=== PATIENT | female | born 1955 | race Caucasian/White ===

== ENCOUNTER → 2019-09-11 | Outpatient (REF) | LOC: M LAB LCGH 15:37 | PROVIDERS: ATTEND Physician Assistant | DX: C44.311 Basal cell carcinoma of skin of nose (principal) ==

== ENCOUNTER → 2022-05-31 | Outpatient (CLI) | payer OTHER ==
[~2022-05-31] MED LIST: ATEN50TA2 PO; FARX1TAB3 PO; LEXA1TAB PO; METF10004 PO; PRAV40TA2 PO; TRUL0.5I PO
== END ==
LOC: M LABSMTC 10:41
PROVIDERS: ATTEND Anesthesiology
DX: Z01.812 Encounter for preprocedural laboratory examination (principal); Z11.52 Encounter for screening for COVID-19

== ENCOUNTER 2022-06-05 10:50 | Day surgery (SDC) | payer BC ==
[~2022-06-05] VITALS: Ht 167.6 cm; Wt 103.6 kg
[~2022-06-05 10:50] MED LIST changes: +NS 1,000 ML IV ONE
[2022-06-05] MEDS ORDERED: propofoL 200 MG/20 ML VIAL As Ordered ONE (12:46)
[2022-06-05] MEDS ORDERED: LIDOCAINE 2% 100MG/5ML SDV (FOR ANES.) As Ordered ONE (12:46)
[2022-06-05 13:32] VITALS: BP 143/75
[2022-06-05] MEDS ORDERED: GASTROGRAFIN SOLUTION 30ML (Q9963) As Ordered ONE (14:07)
[2022-06-05 15:14] LABS: ALBUMIN 3.5 GM/DL (3.2-5.2); BLOOD UREA NITROGEN 12 MG/DL (7-18); CARBON DIOXIDE LEVEL 28 MEQ/L (21-32); CHLORIDE LEVEL 106 MEQ/L (98-107); CREATININE FOR GFR 0.55 MG/DL (0.55-1.30); GLOMERULAR FILTRATION RATE > 60.0 (>45); GLUCOSE, FASTING 166 MG/DL (70-100); POTASSIUM SERUM 4.1 MEQ/L (3.5-5.1); SODIUM LEVEL 141 MEQ/L (136-145)
[2022-06-05] MEDS ORDERED: ISOVUE-370 76% 100ML VIAL As Ordered ONE (15:30)
== END 2022-06-05 14:00 | disposition home or self-care (01) ==
LOC: M OPP 10:50
PROVIDERS: ATTEND Surgery
DX: R19.4 Change in bowel habit (principal); K62.5 Hemorrhage of anus and rectum; C18.7 Malignant neoplasm of sigmoid colon; D12.8 Benign neoplasm of rectum; K64.1 Second degree hemorrhoids; K56.691 Other complete intestinal obstruction; I10 Essential (primary) hypertension; E78.5 Hyperlipidemia, unspecified; E11.9 Type 2 diabetes mellitus without complications; F17.210 Nicotine dependence, cigarettes, uncomplicated; Z85.828 Personal history of other malignant neoplasm of skin; Z79.84 Long term (current) use of oral hypoglycemic drugs; Z79.899 Other long term (current) drug therapy; Z82.49 Family history of ischemic heart disease and other diseases of the circulatory system
CPT/HCPCS: 36415; 45380; 74177; 80069; 88305; Q9963; Q9967

== ENCOUNTER → 2022-06-21 | Outpatient (CLI) | payer BC ==
[~2022-06-21] MED LIST changes: -NS 1,000 ML IV ONE
== END ==
LOC: M LABSMTC 09:06
PROVIDERS: ATTEND Anesthesiology
DX: Z11.52 Encounter for screening for COVID-19 (principal)

== ENCOUNTER 2022-06-26 07:30 | Inpatient (IN) | payer BC ==
[2022-06-26] VITALS (7 sets, daily range): BP systolic 111–117; BP diastolic 58–63
[~2022-06-26] VITALS: Ht 165.1 cm; Wt 103.5 kg
[~2022-06-26 07:30] MED LIST changes: +ERTAPENEM SODIUM 1 GM in NS MINI-BAG PLUS 50 ML IV ONE
[2022-06-26] MEDS ORDERED: LR 1,000 ML IV SCH ×2 (08:10→15:10)
[2022-06-26] MEDS ORDERED: METOCLOPRAMIDE INJ 10MG/2ML VIAL (J2765 PER 1) As Ordered ONE (10:03)
[2022-06-26] MEDS ORDERED: propofoL 200 MG/20 ML VIAL As Ordered ONE (10:03)
[2022-06-26] MEDS ORDERED: ROCURONIUM BROMIDE 50 MG/5 ML VIAL As Ordered ONE ×2 (10:03→14:32)
[2022-06-26] MEDS ORDERED: ACETAMINOPHEN 1000MG 100ML IV BTL (OFIRMEV) (J0131 PER 10MG) As Ordered ONE (10:03)
[2022-06-26] MEDS ORDERED: fentaNYL 100 MCG/2 ML INJECTION As Ordered ONE (10:03)
[2022-06-26] MEDS ORDERED: SUGAMMADEX SODIUM 500 MG/5 ML VIAL (BRIDION) As Ordered ONE (10:03)
[2022-06-26] MEDS ORDERED: MIDAZOLAM INJ 2MG/2ML VIAL (J2250 PER 1MG) As Ordered ONE (10:03)
[2022-06-26] MEDS ORDERED: ONDANSETRON 4MG 2ML VIAL As Ordered ONE (10:03)
[2022-06-26] MEDS ORDERED: KETOROLAC 60MG 2ML VIAL As Ordered ONE (10:03)
[2022-06-26] MEDS ORDERED: LIDOCAINE 2% 100MG/5ML SDV (FOR ANES.) As Ordered ONE (10:03)
[2022-06-26] MEDS ORDERED: dexameTHASONE 4 MG/ML 1ML VIAL (J1100 PER 1MG) As Ordered ONE (10:03)
[2022-06-26] MEDS ORDERED: MORPHINE 4 MG/ML 1ML VIAL/SYRINGE IV PRN (10:20)
[2022-06-26] MEDS ORDERED: ACETAMINOPHEN TAB 650MG DOSE (2X325MG) PO PRN (10:20)
[2022-06-26] MEDS ORDERED: ONDANSETRON 4MG 2ML VIAL IV PRN ×2 (10:20→15:10)
[2022-06-26] MEDS ORDERED: NORCO, ANEXSIA 5/325MG TABLET (HYDROcodone/ACETAMINOPHEN) PO PRN ×2 (10:20)
[2022-06-26] MEDS ORDERED: BUPIVACAINE/EPIN 0.25% 30 ML VIAL As Ordered ONE (10:31)
[2022-06-26] MEDS ORDERED: HYDROmorphone HCL 2MG/ML 1ML VIAL As Ordered ONE (11:26)
[2022-06-26] MEDS ORDERED: MORPHINE 2 MG/ML 1ML VIAL IV PRN (15:10)
[2022-06-26] MEDS ORDERED: fentaNYL 100 MCG/2 ML INJECTION IV PRN (15:10)
[2022-06-26] MEDS ORDERED: oxyCODONE 5MG TAB PO PRN (15:10)
[2022-06-26] MEDS: NS 1,000 ML IV SCH ×2 (16:23→20:22)
[2022-06-26] MEDS: PRAVASTATIN 20 MG TAB PO SCH (20:22)
[2022-06-26] MEDS: PIPERACILLIN/TAZOBACTAM SOD 3.375 GM in D5W MINI-BAG PLUS 50 ML IV SCH (20:22)
[2022-06-26] MEDS: SENOKOT S TAB PO SCH (20:22)
[2022-06-27 01:20] VITALS: BP 115/64
[2022-06-27] MEDS: NS 1,000 ML IV SCH ×3 (01:55→21:00)
[2022-06-27] MEDS: PIPERACILLIN/TAZOBACTAM SOD 3.375 GM in D5W MINI-BAG PLUS 50 ML IV SCH ×4 (02:03→20:59)
[2022-06-27 05:20] VITALS: BP 131/70
[2022-06-27 06:21] LABS: HEMOGLOBIN 12.4 g/dl (12.0-15.5); MEAN CORPUSCULAR HEMOGLOBIN 27.9 pg (27.0-33.0); MEAN CORPUSCULAR VOLUME 89.9 fl (80.0-96.0); PLATELET COUNT, AUTOMATED 308 10^3/uL (150-450); RED BLOOD COUNT 4.45 10^6/uL (4.00-5.40); WHITE BLOOD COUNT 12.3 10^3/uL (4.0-10.0)
[2022-06-27 06:52] LABS: BLOOD UREA NITROGEN 13 MG/DL (7-18); CALCIUM LEVEL 8.3 MG/DL (8.8-10.2); CARBON DIOXIDE LEVEL 29 MEQ/L (21-32); CHLORIDE LEVEL 105 MEQ/L (98-107); CREATININE FOR GFR 0.48 MG/DL (0.55-1.30); GLOMERULAR FILTRATION RATE > 60.0 (>45); GLUCOSE, FASTING 170 MG/DL (70-100); POTASSIUM SERUM 3.9 MEQ/L (3.5-5.1); SODIUM LEVEL 139 MEQ/L (136-145)
[2022-06-27] MEDS: atenoloL 50 MG TAB PO SCH (08:27)
[2022-06-27] MEDS: ESCITALOPRAM OXALATE 10 MG TAB (LEXAPRO) PO SCH (08:27)
[2022-06-27] MEDS: SENOKOT S TAB PO SCH ×2 (08:28→20:59)
[2022-06-27] MEDS: PANTOPRAZOLE 40MG VIAL IV SCH (08:28)
[2022-06-27] MEDS: ENOXAPARIN 40MG/0.4ML SYRINGE (J1650 PER 10MG) SC SCH (08:28)
[2022-06-27] MEDS: metFORMIN (GLUCOPHAGE) 1000MG TABLET PO SCH ×2 (08:28→17:13)
[2022-06-27 09:20] VITALS: BP 127/62
[2022-06-27] MEDS: DAPAGLIFLOZIN PROPANEDIOL 10MG TABLET (FARXIGA) PO SCH (11:59)
[2022-06-27 13:20] VITALS: BP 131/63
[2022-06-27] MEDS: KETOROLAC 30 MG/ML 1ML VIAL IV PRN ×2 (17:13→23:34)
[2022-06-27 17:20] VITALS: BP 131/62
[2022-06-27] MEDS: PRAVASTATIN 20 MG TAB PO SCH (20:59)
[2022-06-27 22:00] VITALS: BP 145/78
[2022-06-28] MEDS: PIPERACILLIN/TAZOBACTAM SOD 3.375 GM in D5W MINI-BAG PLUS 50 ML IV SCH ×4 (02:48→20:04)
[2022-06-28 06:00] VITALS: BP 144/78
[2022-06-28 06:06] LABS: HEMATOCRIT 38.6 % (36.0-47.0); HEMOGLOBIN 12.1 g/dl (12.0-15.5); MEAN CORPUSCULAR HEMOGLOBIN 28.1 pg (27.0-33.0); MEAN CORPUSCULAR HGB CONC 31.3 g/dl (32.0-36.5); MEAN CORPUSCULAR VOLUME 89.6 fl (80.0-96.0); PLATELET COUNT, AUTOMATED 282 10^3/uL (150-450); RED BLOOD COUNT 4.31 10^6/uL (4.00-5.40); WHITE BLOOD COUNT 9.1 10^3/uL (4.0-10.0)
[2022-06-28 06:39] LABS: BLOOD UREA NITROGEN 7 MG/DL (7-18); CALCIUM LEVEL 8.2 MG/DL (8.8-10.2); CARBON DIOXIDE LEVEL 28 MEQ/L (21-32); CHLORIDE LEVEL 108 MEQ/L (98-107); CREATININE FOR GFR 0.51 MG/DL (0.55-1.30); GLOMERULAR FILTRATION RATE > 60.0 (>45); GLUCOSE, FASTING 159 MG/DL (70-100); MAGNESIUM LEVEL 1.9 MG/DL (1.8-2.4); POTASSIUM SERUM 3.7 MEQ/L (3.5-5.1); SODIUM LEVEL 142 MEQ/L (136-145)
[2022-06-28] MEDS: NS 1,000 ML IV SCH ×2 (06:41→14:52)
[2022-06-28 08:30] VITALS: BP 146/78
[2022-06-28] MEDS: atenoloL 50 MG TAB PO SCH (08:42)
[2022-06-28] MEDS: PANTOPRAZOLE 40MG VIAL IV SCH (08:42)
[2022-06-28] MEDS: ESCITALOPRAM OXALATE 10 MG TAB (LEXAPRO) PO SCH (08:42)
[2022-06-28] MEDS: SENOKOT S TAB PO SCH ×2 (08:42→20:03)
[2022-06-28] MEDS: metFORMIN (GLUCOPHAGE) 1000MG TABLET PO SCH ×2 (08:42→18:15)
[2022-06-28] MEDS: KETOROLAC 30 MG/ML 1ML VIAL IV PRN ×2 (08:43→20:09)
[2022-06-28] MEDS: ENOXAPARIN 40MG/0.4ML SYRINGE (J1650 PER 10MG) SC SCH (08:43)
[2022-06-28] MEDS: DAPAGLIFLOZIN PROPANEDIOL 10MG TABLET (FARXIGA) PO SCH (10:51)
[2022-06-28 14:00] VITALS: BP 142/70
[2022-06-28 19:45] VITALS: BP 129/56
[2022-06-28] MEDS: PRAVASTATIN 20 MG TAB PO SCH (20:03)
[2022-06-29] MEDS: PIPERACILLIN/TAZOBACTAM SOD 3.375 GM in D5W MINI-BAG PLUS 50 ML IV SCH ×2 (03:28→08:50)
[2022-06-29 04:57] VITALS: BP 133/67
[2022-06-29 05:41] LABS: HEMATOCRIT 36.5 % (36.0-47.0); HEMOGLOBIN 11.7 g/dl (12.0-15.5); MEAN CORPUSCULAR HGB CONC 32.1 g/dl (32.0-36.5); MEAN CORPUSCULAR VOLUME 90.6 fl (80.0-96.0); PLATELET COUNT, AUTOMATED 270 10^3/uL (150-450); RED BLOOD COUNT 4.03 10^6/uL (4.00-5.40); WHITE BLOOD COUNT 7.8 10^3/uL (4.0-10.0)
[2022-06-29 06:14] LABS: BLOOD UREA NITROGEN 5 MG/DL (7-18); CALCIUM LEVEL 8.3 MG/DL (8.8-10.2); CARBON DIOXIDE LEVEL 27 MEQ/L (21-32); CHLORIDE LEVEL 110 MEQ/L (98-107); CREATININE FOR GFR 0.44 MG/DL (0.55-1.30); GLOMERULAR FILTRATION RATE > 60.0 (>45); GLUCOSE, FASTING 165 MG/DL (70-100); MAGNESIUM LEVEL 1.7 MG/DL (1.8-2.4); POTASSIUM SERUM 3.6 MEQ/L (3.5-5.1); SODIUM LEVEL 142 MEQ/L (136-145)
[2022-06-29 08:00] VITALS: BP 137/72
[2022-06-29] MEDS: PANTOPRAZOLE 40MG VIAL IV SCH (08:49)
[2022-06-29] MEDS: DAPAGLIFLOZIN PROPANEDIOL 10MG TABLET (FARXIGA) PO SCH (08:50)
[2022-06-29] MEDS: ENOXAPARIN 40MG/0.4ML SYRINGE (J1650 PER 10MG) SC SCH (08:50)
[2022-06-29] MEDS: metFORMIN (GLUCOPHAGE) 1000MG TABLET PO SCH (08:50)
[2022-06-29 08:53] VITALS: BP 137/72
[2022-06-29] MEDS: SENOKOT S TAB PO SCH (08:53)
[2022-06-29] MEDS: ESCITALOPRAM OXALATE 10 MG TAB (LEXAPRO) PO SCH (08:53)
[2022-06-29] MEDS: atenoloL 50 MG TAB PO SCH (08:53)
[2022-06-29] MEDS ORDERED: HYDR-3715 PO (10:40)
== END 2022-06-29 11:50 | disposition home or self-care (01) | DRG 221 ==
LOC: M OR 07:30 → M MSPAV 16:10
PROVIDERS: ADMIT Surgery; ATTEND Surgery
PROC: 0DBN4ZZ Excision of Sigmoid Colon, Percutaneous Endoscopic Approach (ICD-10-PCS; 2022-06-26)
PROC: 8E0W4CZ Robotic Assisted Procedure of Trunk Region, Percutaneous Endoscopic Approach (ICD-10-PCS; 2022-06-26)
PROC: 0DBP4ZZ Excision of Rectum, Percutaneous Endoscopic Approach (ICD-10-PCS; principal; 2022-06-26 09:45)
DX: C19 Malignant neoplasm of rectosigmoid junction (principal); I10 Essential (primary) hypertension; E11.9 Type 2 diabetes mellitus without complications; E78.5 Hyperlipidemia, unspecified; F41.9 Anxiety disorder, unspecified; Z79.84 Long term (current) use of oral hypoglycemic drugs; Z79.899 Other long term (current) drug therapy

== ENCOUNTER → 2022-08-07 | Outpatient (CLI) | payer BC ==
[~2022-08-07] MED LIST changes: -ERTAPENEM SODIUM 1 GM in NS MINI-BAG PLUS 50 ML IV ONE; +FERR325T3 PO; +HYDR-3715 PO; +ONDA-84 PO; +PROC10TA5 PO
== END ==
LOC: M LABSMTC 10:55
PROVIDERS: ATTEND Anesthesiology
DX: Z01.818 Encounter for other preprocedural examination (principal); Z11.52 Encounter for screening for COVID-19

== ENCOUNTER → 2022-08-09 | Outpatient (CLI) | payer BC ==
[~2022-08-09] MED LIST changes: +ISOVUE-370 76% 100ML VIAL As Ordered ONE
== END ==
LOC: M RAD 17:07
PROVIDERS: ATTEND Internal Medicine Medical Oncology
DX: C18.9 Malignant neoplasm of colon, unspecified (principal)
CPT/HCPCS: 71260; Q9967

== ENCOUNTER → 2022-08-10 | Outpatient (CLI) | payer BC ==
[~2022-08-10] MED LIST changes: -ISOVUE-370 76% 100ML VIAL As Ordered ONE; +LIDOCAINE 1% MDV 20ML VIAL As Ordered ONE; +MIDAZOLAM INJ 2MG/2ML VIAL (J2250 PER 1MG) As Ordered ONE; +NS 1,000 ML IV SCH; +ceFAZolin 2 GM/D5W 50 ML IV BAG (J0690 PER 500MG) As Ordered ONE; +ceFAZolin SOD 2 GM in IV 1 EA IV ONE; +diphenhydrAMINE 50MG/ML VIAL (J1200) As Ordered ONE; +fentaNYL 100 MCG/2 ML INJECTION As Ordered ONE
[2022-08-10 14:20] VITALS: BP 143/74
== END ==
LOC: M IRPRO 10:15
PROVIDERS: ATTEND Internal Medicine Medical Oncology
DX: C18.7 Malignant neoplasm of sigmoid colon (principal)
CPT/HCPCS: 36561; 99152; 99153; C1769; C1788; C1894; J0690; J1200; J1642; J1644; J2250; J3010

== ENCOUNTER → 2022-08-29 | Outpatient (POV) | payer BC ==
[~2022-08-29] VITALS: Ht 167.6 cm; Wt 105.4 kg
[~2022-08-29] MED LIST changes: -LIDOCAINE 1% MDV 20ML VIAL As Ordered ONE; -MIDAZOLAM INJ 2MG/2ML VIAL (J2250 PER 1MG) As Ordered ONE; -NS 1,000 ML IV SCH; -ceFAZolin 2 GM/D5W 50 ML IV BAG (J0690 PER 500MG) As Ordered ONE; -ceFAZolin SOD 2 GM in IV 1 EA IV ONE; -diphenhydrAMINE 50MG/ML VIAL (J1200) As Ordered ONE; -fentaNYL 100 MCG/2 ML INJECTION As Ordered ONE
[2022-08-29 10:25] VITALS: BP 139/75
== END ==
LOC: M IRPOV 10:05
PROVIDERS: ATTEND Radiology Diagnostic Radiology
DX: Z45.2 Encounter for adjustment and management of vascular access device (principal)

== ENCOUNTER → 2022-10-16 | Outpatient (CLI) | payer BC | LOC: M PLARAD 07:38 | PROVIDERS: ATTEND Internal Medicine Medical Oncology | DX: C18.7 Malignant neoplasm of sigmoid colon (principal); K80.20 Calculus of gallbladder without cholecystitis without obstruction; I25.10 Atherosclerotic heart disease of native coronary artery without angina pectoris | CPT/HCPCS: 78815; A9552 ==

== ENCOUNTER → 2023-01-08 | Outpatient (REF) | payer OTHER, BC ==
[~2023-01-08] MED LIST changes: +CEFD300C41; +LEVO1TAB39 PO
== END ==
LOC: M LAB REF 17:23
PROVIDERS: ATTEND Otolaryngology
DX: D11.0 Benign neoplasm of parotid gland (principal)

== ENCOUNTER → 2023-03-07 | Outpatient (CLI) | payer OTHER ==
[~2023-03-07] MED LIST changes: +ISOVUE-370 76% 100ML VIAL As Ordered ONE
== END ==
LOC: M RAD 08:13
PROVIDERS: ATTEND Otolaryngology
DX: D49.0 Neoplasm of unspecified behavior of digestive system (principal)
CPT/HCPCS: 70491; Q9967

== ENCOUNTER → 2023-05-16 | Outpatient (CLI) | payer BC, OTHER ==
[~2023-05-16] MED LIST changes: +GASTROGRAFIN SOLUTION 30ML As Ordered ONE
== END ==
LOC: M RAD 11:38
PROVIDERS: ATTEND Internal Medicine Medical Oncology
DX: C18.9 Malignant neoplasm of colon, unspecified (principal)
CPT/HCPCS: 71260; 74177; Q9963; Q9967

== ENCOUNTER → 2023-10-03 | Outpatient (CLI) | payer OTHER ==
[~2023-10-03] VITALS: Ht 165.1 cm; Wt 100.0 kg
[~2023-10-03] MED LIST changes: -CEFD300C41; +CEFD300C42; -GASTROGRAFIN SOLUTION 30ML As Ordered ONE; -ISOVUE-370 76% 100ML VIAL As Ordered ONE; +LIDOCAINE 1% MDV 20ML VIAL As Ordered ONE; +LIDOCAINE W/EPINEPHRINE 1% 20ML VIAL As Ordered ONE; +NS 1,000 ML IV SCH; +TIRZ5PEN SQ; +ceFAZolin 2 GM/D5W 50 ML IV BAG As Ordered ONE; +ceFAZolin SOD 2 GM in IV 1 EA IV ONE
[2023-10-03 07:02] VITALS: TEMP 96.9
[2023-10-03 07:25] LABS: HEMATOCRIT 46.7 % (36.0-47.0); HEMOGLOBIN 15.5 g/dl (12.0-15.5); MEAN CORPUSCULAR HEMOGLOBIN 32.2 pg (27.0-33.0); MEAN CORPUSCULAR HGB CONC 33.2 g/dl (32.0-36.5); MEAN CORPUSCULAR VOLUME 96.9 fl (80.0-96.0); PLATELET COUNT, AUTOMATED 229 10^3/uL (150-450); RED BLOOD COUNT 4.82 10^6/uL (4.00-5.40)
[2023-10-03 07:39] LABS: INR 0.96; PROTHROMBIN TIME 12.5 SECONDS (12.5-14.5)
[2023-10-03 08:51] VITALS: BP 169/74; O2SAT 100
== END ==
LOC: M IRPRO 06:41
PROVIDERS: ATTEND Internal Medicine Medical Oncology
DX: C18.9 Malignant neoplasm of colon, unspecified (principal)
CPT/HCPCS: 36589; 85027; 85610; J0690

== ENCOUNTER → 2024-04-21 | Outpatient (CLI) | payer MEDICARE, OTHER ==
[~2024-04-21] MED LIST changes: +CEFD1CAP9; -CEFD300C42; +GASTROGRAFIN SOLUTION 30ML As Ordered ONE; +ISOVUE-370 76% 100ML VIAL As Ordered ONE; -LIDOCAINE 1% MDV 20ML VIAL As Ordered ONE; -LIDOCAINE W/EPINEPHRINE 1% 20ML VIAL As Ordered ONE; -NS 1,000 ML IV SCH; -ceFAZolin 2 GM/D5W 50 ML IV BAG As Ordered ONE; -ceFAZolin SOD 2 GM in IV 1 EA IV ONE
== END ==
LOC: M RAD 09:00
PROVIDERS: ATTEND Internal Medicine Medical Oncology
DX: C18.9 Malignant neoplasm of colon, unspecified (principal)

== ENCOUNTER 2024-06-18 09:48 | Day surgery (SDC) | payer OTHER ==
[~2024-06-18] VITALS: Ht 167.6 cm; Wt 102.2 kg
[~2024-06-18 09:48] MED LIST changes: -GASTROGRAFIN SOLUTION 30ML As Ordered ONE; -ISOVUE-370 76% 100ML VIAL As Ordered ONE; +VITA1CAP25 PO
[2024-06-18] MEDS ORDERED: propofoL 200 MG/20 ML VIAL As Ordered ONE (11:25)
[2024-06-18] MEDS ORDERED: LIDOCAINE 2% 100MG/5ML SDV (FOR ANES.) As Ordered ONE (11:25)
[2024-06-18 11:44] VITALS: TEMP 97.4
[2024-06-18 12:04] VITALS: BP 130/64; O2SAT 93
== END 2024-06-18 12:08 | disposition home or self-care (01) ==
LOC: M OPP 09:48
PROVIDERS: ATTEND Surgery
DX: K29.70 Gastritis, unspecified, without bleeding (principal); Z85.038 Personal history of other malignant neoplasm of large intestine; Z86.010 Personal history of colon polyps; R93.3 Abnormal findings on diagnostic imaging of other parts of digestive tract; Z90.49 Acquired absence of other specified parts of digestive tract; E11.9 Type 2 diabetes mellitus without complications; I10 Essential (primary) hypertension; Z79.02 Long term (current) use of antithrombotics/antiplatelets; Z79.84 Long term (current) use of oral hypoglycemic drugs; Z79.85 Long-term (current) use of injectable non-insulin antidiabetic drugs; Z79.899 Other long term (current) drug therapy

== ENCOUNTER 2024-08-22 07:30 | Day surgery (SDC) | payer OTHER ==
[~2024-08-22] VITALS: Ht 165.1 cm; Wt 98.6 kg
[~2024-08-22 07:30] MED LIST changes: +FAMO40TA3 PO; +NS 1,000 ML IV ONE
[2024-08-22] MEDS ORDERED: propofoL 200 MG/20 ML VIAL As Ordered ONE (08:48)
[2024-08-22] MEDS ORDERED: LIDOCAINE 2% 100MG/5ML SDV (FOR ANES.) As Ordered ONE (08:48)
[2024-08-22 10:12] VITALS: TEMP 97.9
[2024-08-22 10:30] VITALS: BP 118/65; O2SAT 97
== END 2024-08-22 10:38 | disposition home or self-care (01) ==
LOC: M OPP 07:30
PROVIDERS: ATTEND Surgery
DX: D12.3 Benign neoplasm of transverse colon (principal); D12.8 Benign neoplasm of rectum; Z85.038 Personal history of other malignant neoplasm of large intestine; Z86.0100 Personal history of colon polyps, unspecified; K64.0 First degree hemorrhoids; K57.30 Diverticulosis of large intestine without perforation or abscess without bleeding; I10 Essential (primary) hypertension; E78.5 Hyperlipidemia, unspecified; E11.9 Type 2 diabetes mellitus without complications; F17.210 Nicotine dependence, cigarettes, uncomplicated; Z85.828 Personal history of other malignant neoplasm of skin; Z92.21 Personal history of antineoplastic chemotherapy; Z79.84 Long term (current) use of oral hypoglycemic drugs; Z79.85 Long-term (current) use of injectable non-insulin antidiabetic drugs; Z79.899 Other long term (current) drug therapy

== ENCOUNTER → 2024-11-06 | Outpatient (CLI) | payer OTHER ==
[~2024-11-06] MED LIST changes: -NS 1,000 ML IV ONE
== END ==
LOC: M SOG 07:52
PROVIDERS: ATTEND Physician Assistant
DX: Z53.9 Procedure and treatment not carried out, unspecified reason (principal)

== ENCOUNTER 2025-01-12 10:38 | Day surgery (SDC) | payer OTHER ==
[~2025-01-12] VITALS: Ht 167.6 cm; Wt 101.5 kg
[2025-01-12] MEDS ORDERED: LIDOCAINE W/EPINEPHRINE 1% 20ML VIAL XX ONE (10:50)
[2025-01-12] MEDS ORDERED: SODIUM BICARBONATE 8.4% INJ 50MEQ 50ML VIAL XX ONE (10:50)
[2025-01-12 13:45] VITALS: BP 162/70; TEMP 97.2; O2SAT 96
== END 2025-01-12 13:59 | disposition home or self-care (01) ==
LOC: M SDC 10:38
PROVIDERS: ATTEND Orthopaedic Surgery Hand Surgery
DX: M65.312 Trigger thumb, left thumb (principal); E11.9 Type 2 diabetes mellitus without complications; Z79.899 Other long term (current) drug therapy; F17.210 Nicotine dependence, cigarettes, uncomplicated

== ENCOUNTER → 2025-05-25 | Outpatient (CLI) | payer OTHER ==
[~2025-05-25] MED LIST changes: +ISOVUE-370 76% 100 ML VIAL As Ordered ONE; -PRAV40TA2 PO; +PRAV40TA85 PO
== END ==
LOC: M RAD 10:01
PROVIDERS: ATTEND Internal Medicine Medical Oncology
DX: C18.7 Malignant neoplasm of sigmoid colon (principal); R59.0 Localized enlarged lymph nodes; J98.11 Atelectasis; R91.1 Solitary pulmonary nodule
CPT/HCPCS: 71260; 74177; Q9967

== ENCOUNTER → 2025-06-17 | Outpatient (CLI) | payer MEDICARE, OTHER ==
[~2025-06-17] MED LIST changes: -ISOVUE-370 76% 100 ML VIAL As Ordered ONE; +LIDOCAINE 1% MDV 20 ML VIAL SC ONE
[2025-06-17 13:20] VITALS: TEMP 96.8
[2025-06-17 14:17] LABS: PLATELET COUNT, AUTOMATED 340 10^3/uL (150-450)
[2025-06-17 14:27] LABS: INR 0.93
[2025-06-17 16:30] VITALS: BP 140/67; O2SAT 96
== END ==
LOC: M IRPRO 13:03
PROVIDERS: ATTEND Internal Medicine Hematology & Oncology
DX: K76.89 Other specified diseases of liver (principal); C18.9 Malignant neoplasm of colon, unspecified; C78.7 Secondary malignant neoplasm of liver and intrahepatic bile duct

== ENCOUNTER → 2025-07-13 | Outpatient (CLI) | payer OTHER ==
[~2025-07-13] MED LIST changes: -LIDOCAINE 1% MDV 20 ML VIAL SC ONE
== END ==
LOC: M PLARAD 13:47
PROVIDERS: ATTEND Internal Medicine Medical Oncology
DX: C18.7 Malignant neoplasm of sigmoid colon (principal)
CPT/HCPCS: 78815; A9552

== ENCOUNTER → 2025-07-15 | Outpatient (CLI) | payer OTHER ==
[~2025-07-15] VITALS: Ht 165.1 cm; Wt 100.8 kg
[~2025-07-15] MED LIST changes: +DEXA4TA PO; +ONDA-282 PO
[2025-07-15 09:37] VITALS: BP 180/98; O2SAT 95
== END ==
LOC: M PAL 09:13
PROVIDERS: ATTEND Physician Assistant
DX: Z51.5 Encounter for palliative care (principal); Z66 Do not resuscitate; C18.9 Malignant neoplasm of colon, unspecified; C78.7 Secondary malignant neoplasm of liver and intrahepatic bile duct; C79.89 Secondary malignant neoplasm of other specified sites; C76.3 Malignant neoplasm of pelvis; Z92.25 Personal history of immunosuppression therapy; Z79.899 Other long term (current) drug therapy

== ENCOUNTER → 2025-07-15 | Outpatient (CLI) | payer OTHER | LOC: M ONCR 10:15 | PROVIDERS: ATTEND General Practice | DX: C18.7 Malignant neoplasm of sigmoid colon (principal); C78.7 Secondary malignant neoplasm of liver and intrahepatic bile duct; Z79.84 Long term (current) use of oral hypoglycemic drugs; Z79.899 Other long term (current) drug therapy; Z85.828 Personal history of other malignant neoplasm of skin ==

== ENCOUNTER → 2025-07-16 | Outpatient (CLI) | payer OTHER ==
[2025-07-16 09:45] VITALS: TEMP 97.5
[2025-07-16] MEDS: NS (Normal Saline) 0.9% 1,000 ML IV SCH (10:08)
[2025-07-16] MEDS: ceFAZolin SODIUM 2 GM in DEXTROSE 5% (D5W) ADV/MINI-BAG 50 ML IV ONE (10:08)
[2025-07-16] MEDS: MIDAZOLAM INJ 2 MG/2 ML VIAL IV PRN (10:53)
[2025-07-16] MEDS: LIDOCAINE 1% MDV 20 ML VIAL SC SCH (11:14)
[2025-07-16 11:25] VITALS: O2SAT 100
[2025-07-16 11:35] VITALS: BP 139/64
== END ==
LOC: M IRPRO 09:34
PROVIDERS: ATTEND Internal Medicine Medical Oncology
DX: C18.7 Malignant neoplasm of sigmoid colon (principal)
CPT/HCPCS: 36561; 99152; 99153; J0690; J1642; J2250; J3010

== ENCOUNTER 2025-07-17 08:14 | Outpatient (RCR) | payer OTHER | END 2025-07-19 | LOC: M ONCR 08:14 | PROVIDERS: ATTEND General Practice | DX: Z51.0 Encounter for antineoplastic radiation therapy (principal); C78.7 Secondary malignant neoplasm of liver and intrahepatic bile duct ==

== ENCOUNTER → 2025-09-05 | Outpatient (CLI) | payer OTHER ==
[~2025-09-05] MED LIST changes: +CEPH500C PO; +LIDOCAINE 1% MDV 20 ML VIAL SC SCH; +MIDAZOLAM INJ 2 MG/2 ML VIAL IV PRN; +MIRA3350 PO; +NS (Normal Saline) 0.9% 1,000 ML IV SCH; +ONDA-284 PO; +ceFAZolin SODIUM 2 GM in DEXTROSE 5% (D5W) ADV/MINI-BAG 50 ML IV ONE
== END ==
LOC: M IRPRO 06:35
PROVIDERS: ATTEND Internal Medicine Medical Oncology
DX: Z53.9 Procedure and treatment not carried out, unspecified reason (principal); C18.9 Malignant neoplasm of colon, unspecified

== ENCOUNTER → 2025-10-08 | Outpatient (CLI) | payer OTHER ==
[~2025-10-08] MED LIST changes: +ISOVUE-370 76% 100 ML VIAL ONE; -LIDOCAINE 1% MDV 20 ML VIAL SC SCH; -MIDAZOLAM INJ 2 MG/2 ML VIAL IV PRN; -NS (Normal Saline) 0.9% 1,000 ML IV SCH; -ceFAZolin SODIUM 2 GM in DEXTROSE 5% (D5W) ADV/MINI-BAG 50 ML IV ONE
== END ==
LOC: M PLAIMG 09:23
DX: C18.9 Malignant neoplasm of colon, unspecified (principal); R53.1 Weakness; R59.0 Localized enlarged lymph nodes; K76.89 Other specified diseases of liver; J90 Pleural effusion, not elsewhere classified; R19.09 Other intra-abdominal and pelvic swelling, mass and lump
CPT/HCPCS: 71260; 74177; Q9967

== ENCOUNTER → 2025-10-08 | Outpatient (CLI) | payer OTHER, MEDICARE ==
[~2025-10-08] MED LIST changes: -ISOVUE-370 76% 100 ML VIAL ONE
== END ==
LOC: M PLARAD 09:14
DX: C18.9 Malignant neoplasm of colon, unspecified (principal); R53.1 Weakness; D43.4 Neoplasm of uncertain behavior of spinal cord

== ENCOUNTER → 2025-10-13 | Outpatient (CLI) | payer OTHER ==
[~2025-10-13] MED LIST changes: +PROHANCE 279.3MG/ML 15ML VIAL As Ordered ONE; +PROHANCE 279.3MG/ML 5ML VIAL As Ordered ONE
== END ==
LOC: M RAD 06:49
DX: C18.7 Malignant neoplasm of sigmoid colon (principal); J90 Pleural effusion, not elsewhere classified; R59.0 Localized enlarged lymph nodes
CPT/HCPCS: 72157; A9579